=== PATIENT | female | born 1940 | race Caucasian/White ===

== ENCOUNTER → 2020-09-01 13:11 | Outpatient (CLI) | payer MEDICARE, SELFPAY ==
--- NOTE | 2020-09-01 13:24 | CT_ITS ---
PROCEDURE: CT ANGIO CHEST CLINCIAL INDICATION: to rule out PE Cp Dizziness Edema A-fib Abn EKG No prior COMPARISON: No exams were available for comparison TECHNIQUE: IV Contrast: 70ML Isovue 370 Axial images obtained with sagittal and coronal reformats. All CT scans at the facility use one or more dose reduction, viz: automated exposure control, ma/kV adjustment per patient size (including targeted exams where dose is matched to indication, i.e. head), or iterative reconstruction technique. FINDINGS: HEART AND MEDIASTINAL STRUCTURES: No evidence of aortic aneurysm or dissection. No evidence of central pulmonary embolus. The peripheral pulmonary arteries are not well opacified. Coronary artery calcifications are present. LUNGS AND PLEURAL SPACES: Unremarkable. BONY STRUCTURES: No acute bony abnormalities apparent. UPPER ABDOMEN: Unremarkable. ADDITIONAL FINDINGS: No other significant abnormalities. IMPRESSION: Dictated by: Brian Mistry MD 09/03/2020 14:27 Brian Mistry MD in [place] 09/03/2020 14:27
[2020-09-01 13:40] LABS: Basophils % 0.6 % (0.1-2.0); Eosinophils # 0.2 K/mm3 (0.0-0.4); Eosinophils % 2.9 % (0.1-12.0); Hematocrit 44.8 % (37.0-47.0); Hemoglobin 14.8 g/dL (12.2-16.2); Lymphocytes # 2.6 K/mm3 (0.7-4.5); Lymphocytes % 34.7 % (10-50); Mean Corpuscular Hemoglobin 32.2 pg (27.0-31.2); Mean Corpuscular Volume 97.4 fl (81-99); Mean Platelet Volume 9.7 fl (7.4-10.4); Monocytes # 0.5 K/mm3 (0.1-1.0); Monocytes % 7.2 % (1.7-9.3); Neutrophils # 4.1 K/mm3 (1.8-7.8); Neutrophils % 54.7 % (37.0-80.0); Platelet Count 223 K/mm3 (142-424); Red Blood Count 4.59 M/mm3 (4.20-5.40); Red Cell Distribution Width 13.4 % (11.5-17.5); White Blood Count 7.5 K/mm3 (4.8-10.8)
[2020-09-01 14:17] LABS: Alanine Aminotransferase 21 U/L (12-78); Albumin Level 4.4 g/dl (3.5-5.0); Alkaline Phosphatase 94 U/L (38-126); Anion Gap 11.4 mEq/L (5-15); Aspartate Amino Transferase 34 U/L (14-36); Bilirubin,Indirect 0.6 mg/dL (0.0-0.9); Bilirubin,Total 0.6 mg/dl (0.2-1.3); Bilirubin,Unconjugated 0.7 mg/dL (0.0-1.1); Blood Urea Nitrogen 14 mg/dl (7-17); Calcium 9.2 mg/dl (8.4-10.2); Carbon Dioxide 28 mmol/L (22.0-30.0); Chloride 105 mmol/L (98-107); Estimated Glomerular Filt Rate 53 ml/min (>60); GFR (African American) 65 ML/MIN (>60); Glucose 109 mg/dl (74-100); Potassium 4.4 mmoL/L (3.5-5.1); Sodium 140 mmol/L (136-145); Total Protein,Serum 7.2 g/dl (6.3-8.2)
[2020-09-01 14:18] LABS: Erythrocyte Sedimentation Rate 17 mm/hr (0-30)
[2020-09-01 14:23] LABS: C-Reactive Protein 2.8 mg/L (0-4)
[2020-09-01 14:35] LABS: Free T4 (Free Thyroxine) 1.35 ng/dl (0.78-2.19)
[2020-09-01 14:50] LABS: Thyroid Stimulating Hormone 7.79 uIU/mL (0.465-4.68)
== END ==
PROVIDERS: Visit Provider Internal Medicine
DX: E11.9 Type 2 diabetes mellitus without complications (principal); I25.118 Atherosclerotic heart disease of native coronary artery with other forms of angina pectoris; I48.91 Unspecified atrial fibrillation; R07.89 Other chest pain; R42 Dizziness and giddiness; R60.9 Edema, unspecified; R94.31 Abnormal electrocardiogram [ECG] [EKG]
CPT/HCPCS: 36415; 71275; 80048; 80076; 84439; 84443; 85025; 85651; 86140; Q9967

== ENCOUNTER 2020-10-12 08:28 | Day surgery (SDC) | payer MEDICARE, SELFPAY ==
[2020-10-12] VITALS (7 sets, daily range): BP systolic 148–166; BP diastolic 74–84; PULSE 58–72; RESP 16–18; TEMP 36.5–36.7; O2SAT 97–99
--- NOTE | 2020-10-12 10:43 | HMH.PROC ---
[facility] Procedure Note Procedure Note:: Upper Endoscopy Procedure Report: Esophagogastroduodenoscopy with cold biopsies and TTS balloon dilation Endoscopost: Kike Keys II, MD Referring Physician: Andrew Stout MD/Frankie Bell MD ([facility]). Date of Procedure: October 12, 2020 Equipment: Olympus GIF 190 standard upper endoscope Sedation: MAC sedation Indications: Mrs. Moffett is an 80-year-old female with atrial fibrillation and cardiomyopathy. Patient also has had atypical chest pain and presumptive esophageal chest pain. She still has a cardiac stress test pending by cardiology according to the patient. She was hospitalized in April 2020. The patient does report belching and retrosternal chest pressure. She does get some choking on her pills. She reports noise in the retrosternal region like gas. She takes PPI therapy when necessary. She reports no heartburn or reflux. She has no globus sensation or dysphagia. She does report some nausea and early satiety. She has moderate bloating. She reports chronic constipation for which she takes prune juice. Her last colonoscopy was 14 years ago. The patient is on blood thinners (Eliquis). Procedure: Prior to the procedure, a history and physical exam was performed, and patient's medications and allergies were reviewed. The risks, benefits and alternatives of the sedation and procedure were discussed with the patient. All questions were answered and informed consent was obtained. The patient was brought to the procedure room. Patient identification and proposed procedure were verified by the physician and the nurse. The patient was placed in a left lateral decubitus position and the scope was passed under direct vision. Throughout the procedure, the patient's blood pressure, pulse, and oxygen saturations were monitored continuously. The upper GI endoscopy was accomplished without difficulty. The patient tolerated the procedure well. Findings: The scope was passed directly into the upper esophagus and advanced to the third portion of the duodenum. The post bulbar duodenum and duodenal bulb were normal with normal mucosa and conniventes. The scope was withdrawn through a normal duodenal bulb and pylorus into the stomach. There was evidence of mild linear reactive gastropathy of the antrum. The remainder of the body and fundus of the stomach were grossly normal. Upon retroflexion there was 2 to 3 cm hiatal hernia. 2 biopsies were taken in the antrum and along the lesser curvature for histology to rule out gastritis and/or H pylori. The scope was then withdrawn into the esophagus. There was a serrated Z-line and biopsies were taken at the GE junction. There was no evidence of reflux esophagitis, Anderson's or Schatzki's ring. There were tertiary contractions and evidence of moderate esophageal dysmotility. The entire esophagus was dilated to 60 Citizen Of [place]/20 mm with a TTS hydrostatic balloon. There was some resistance at the cricopharyngeus. The remainder of the esophageal mucosa was normal. Impression: 1. Cricopharyngeal spasm status post dilation to 20 mm 2. Nonerosive GERD with moderate esophageal dysmotility and small to medium sized hiatal hernia (2 to 3 cm) 3. Mild linear reactive gastropathy Plan: I do feel that the patient has functional GERD with esophageal dyskinesia/esophageal spasm. This is likely causing some of her belching and esophageal chest pain. I will follow-up the biopsies. We will discuss treatment options that should include dietary measures, fiber bowel regimen and possibly promotility therapy. I would recommend a Cologuard test because of her age, bowel issues and fact that she has had no screening in many years.
--- NOTE | 2020-10-12 15:31 | P.PN_ITS ---
[facility] Anesthesia Checklist - Patient Identification Patient Identification: Arm Band - Structural Data Admitted From: Home Planned Operative Procedure/s: EGD Consent for Planned Operative Procedure(s) Verified: Yes Verified Documents: Surgical Consent, History and Physical - NPO Status Verified Time NPO: 00:00 - Airway Assessment C-Spine Mobility Assessed: Yes TMJ Mobility Assessed: Yes Dentition: Good Dentition - Neurological Assessment Level of Consciousness: Awake, Alert - Anesthesia Plan Anesthesia Risk discussed: Yes Anesthesia Plan: Verified ASA Class: III Anesthesia Type: MAC [facility] History Medical History: Reports:: Atrial Fibrillation, Hypertension, Transient Ischemic Attacks (TIA) Denies:: Cancer, Diabetes Mellitus Type 1, Diabetes Mellitus Type 2, Internal Pacemaker, MRSA, Seizures *Have you ever received a pneumonia vaccine?: Yes *Have you received a flu vaccine this season?: Yes Anesthesia experience/problems:: None Laterality Cases: Bilateral: Carpal Tunnel Release, Cataract Other Surgeries: Yes: No Previous Surgery. No: Pacemaker Amputation: No Fractures: Yes (ankle) - *Social History Smoking Status: Never smoker Alcohol Intake: never Substance Use Type: denies use *Occupational Status:: retired Housing: house Household Members: spouse *Travel in the last 8 weeks: None Family Hx:: Coronary Artery Disease, Tuberculosis
== END 2020-10-12 11:57 | disposition home or self-care (01) ==
LOC: OUTP 08:35
PROVIDERS: PCP Family Medicine; Visit Provider Internal Medicine Gastroenterology
PROC: 0DJ08ZZ Inspection of Upper Intestinal Tract, Via Natural or Artificial Opening Endoscopic (ICD-10-PCS; CPT 43235; principal; 2020-10-12 10:00)
DX: J39.2 Other diseases of pharynx (principal); K21.9 Gastro-esophageal reflux disease without esophagitis; K22.4 Dyskinesia of esophagus; K44.9 Diaphragmatic hernia without obstruction or gangrene; K31.9 Disease of stomach and duodenum, unspecified; I48.91 Unspecified atrial fibrillation; I42.9 Cardiomyopathy, unspecified; I10 Essential (primary) hypertension; Z86.73 Personal history of transient ischemic attack (TIA), and cerebral infarction without residual deficits; Z82.49 Family history of ischemic heart disease and other diseases of the circulatory system; Z83.6 Family history of other diseases of the respiratory system; Z79.899 Other long term (current) drug therapy
CPT/HCPCS: 43239; 43249; 88305; 88313; C1726

== ENCOUNTER → 2020-11-11 12:15 | Outpatient (CLI) | payer MEDICARE, SELFPAY ==
--- NOTE | 2020-11-11 12:15 | NM_ITS ---
APPROVED REPORT Exam: Nuclear Stress Test Indication: CAD, HTN, FM HX, SOB, FATIGUE, A-FIB Patient Location: Outpatient Stress Tech: Justine Bhandari [place] Tech:Lucy VilaAKILAH sanabria RT (R)(N)(M) Ht: 5 ft 3 in Wt: 202 lbs Bra Size: 46B HR: 62 bpm BP: 164/74 mmHg BSA: 1.94 m2 BMI: 35.7 History: CAD, HTN, FM HX, SOB, FATIGUE, A-FIB Procedure: Patient received a 0.4 mg of intravenous Lexiscan, resting heart rate 62 bpm, resting blood pressure 164/74 mmHg, with Lexiscan maximum heart rate achived was 87 bpm which is Less than 85 % of the maximum predicted heart rate and blood pressure was 150/68 mmHg. With Lexiscan, patient denied any complaint of chest pain. Electrocardiogram Resting electrocardiogram showed sinus rhythm, with Lexiscan there is less than 1.[address] segment depression noted from the baseline EKG. Cardiac Stress and Resting SPECT Images: Cardiac Stress and Resting SPECT images were obtained using technetium 99m Myoview 30.5 mCi stress and 10.15 mCi at rest. Gated SPECT for analysis of segmental wall motion and calculation of the ejection fraction also done. Prone images were also obtained. Cardiac stress and resting SPECT images show decreased tracer activity in the anteroseptal wall which improves on the resting images, there is transient ischemic dilatation of the left ventricle seen, raising the concerns for multivessel coronary artery disease. Computer derived ejection fraction is 67% with no regional wall motion abnormality, right ventricle is normal size and contractility. Conclusion: 1. The EKG portion of the Lexiscan is nondiagnostic. 2. Scintigraphic evidence of reversible ischemia involving the anteroseptal wall, there is transient ischemic dilatation of the left ventricle seen, raising the concerns for presence of multivessel coronary artery disease. Computer derived ejection fraction 67% with no regional wall motion abnormality, right ventricle is normal size and contractility. 3. Abnormal Lexiscan Myoview study. Electronically signed by : Rolf Valenzuela, 11/12/2020 14:02:18
--- NOTE | 2020-11-11 14:00 | CA_ITS ---
APPROVED REPORT Exam: Pharmacologic Technologist: Justine Bhandari, Stress Nurse: nsr, t wave abns inferiorly and laterally Ht: 5 ft 3 in Wt: 206 lbs BSA: 1.96 m2 HR: 62 bpm BP: 164/74 mmHg Medical History Medical History: HTN Medications: Aspirin,,,,, Apixaban,,,,, SpirOnALACTONE,,,,, Furosemide,,,,, Cardiac Risk Factors: HTN, FHX of CAD Stress Test Details Test: LEXISCAN HR Resting HR: 67 bpm Max Heart Rate (APMHR): 139.124059 bpm Max HR Achieved: 87 bpm Target HR (85% APMHR): 118.627958 bpm % of APMHR: 62.59 Recovery HR: 78 bpm BP Resting BP: 164/74 mmHg Max BP: 164/74 mmHg Recovery BP: 144.0/74.0 mmHg ECG Resting ECG: NSR, T wave abns inferiorly and laterally Clinical Exercise duration: 04:07 min Highest Stage Achieved: Stress ECG Conclusion PT BECAME SOA, MALAISE. NO CP. NO ARRHYTHMIAS. MILD EXAGGERATION OF BASELINE ABNS. UNREMARKABLE LEXISCAN STRESS. MYOVIEW IMAGES REPORTED SEPERATELY. Electronically signed by : Rolf Valenzuela, 11/12/2020 13:53:43
== END ==
PROVIDERS: PCP Family Medicine; Visit Provider Nurse Practitioner Family
DX: I25.118 Atherosclerotic heart disease of native coronary artery with other forms of angina pectoris; I48.91 Unspecified atrial fibrillation; R06.00 Dyspnea, unspecified; R94.31 Abnormal electrocardiogram [ECG] [EKG]
CPT/HCPCS: 78452; 93017; A9502; J2785

== ENCOUNTER 2020-12-09 11:07 | Day surgery (SDC) | payer MEDICARE, SELFPAY ==
[2020-12-09] VITALS (11 sets, daily range): BP systolic 126–154; BP diastolic 61–78; PULSE 52–73; RESP 13–18; O2SAT 95–100; BMI 36.5
--- NOTE | 2020-12-09 07:13 | IR_ITS ---
APPROVED REPORT Patient Location: Outpatient PROCEDURES Left heart catheterization Left ventriculogram Selective coronary angiogram INDICATION High risk abnormal Myoview, Atypical angina pectoris, Informed consent was obtained prior to the procedure. COMPLICATIONS NONE Estimated Blood Loss: LESS THAN 10 ML TECHNIQUE One percent lidocaine used to anesthetize the right anterior aspect of the wrist. The right radial artery was accessed via the Seldinger technique. A 6 Slov[place] sheath was placed in the right radial artery. 2.5 mg of verapamil, 800 mcg of nitroglycerin, 1mg Lidocaine and 5000 U Heparin were given through the arterial sheath. The trap catheter was also used to perform left heart catheterization, left ventriculogram and selective coronary angiogram. At the end of the procedure the sheath was removed good hemostasis was achieved using Traclet band, patient was transferred to the postop holding area in stable condition. ANGIOGRAPHIC RESULTS The left main artery Normal The left anterior descending artery Has a long proximal 40 to 50% calcified stenosis which is smooth and extends into the mid segment with remaining vessel widely patent The circumflex artery Is a nondominant vessel and has a proximal calcified 50 to 60% stenosis supplying a moderate sized bifurcating first obtuse marginal artery The right coronary artery Is a dominant vessel with a proximal 60 to 70% calcified stenosis with mild 10% luminal irregularities throughout The ANGELES ventriculogram reveals Hyperdynamic at 75 to 80% The left ventricular end-diastolic pressure Severely elevated at 30 to 35 mmHg IMPRESSION Calcified three-vessel coronary disease as described above Hyperdynamic ventricle Severely elevated LVEDP PLAN 1. None of these lesions meet angiographic criteria for stenting. Given the severely elevated LVEDP FFR which is not indicated or would be appropriately diagnostic at this time. Regardless, I believe all these lesions can be managed medically and percutaneous revascularization will not improve patient's symptoms which are almost certainly coming from the hyperdynamic ventricle and severely elevated LVEDP/diastolic dysfunction 2. Appropriately treated diastolic dysfunction hyperdynamic ventricle 3. The patient continues to experience angina after she has been optimally medically managed and LVEDP has been decreased, we can then reconsider bringing her back and consider FFR to determine if any of these lesions are ischemic 4. Continue risk factor modification Electronically signed by : Andrew Stout, 12/09/2020 13:39:15
[2020-12-09 12:53] LABS: Basophils # 0.1 K/mm3 (0-0.2); Basophils % 0.9 % (0.1-2.0); Eosinophils # 0.3 K/mm3 (0.0-0.4); Eosinophils % 3.8 % (0.1-12.0); Hematocrit 42.4 % (37.0-47.0); Hemoglobin 14.3 g/dL (12.2-16.2); Lymphocytes # 2.8 K/mm3 (0.7-4.5); Lymphocytes % 40.5 % (10-50); Mean Corpuscular HGB Conc 33.7 g/dL (31.8-35.4); Mean Corpuscular Volume 95.1 fl (81-99); Monocytes # 0.6 K/mm3 (0.1-1.0); Monocytes % 8.1 % (1.7-9.3); Neutrophils # 3.2 K/mm3 (1.8-7.8); Neutrophils % 46.7 % (37.0-80.0); Platelet Count 198 K/mm3 (142-424); Red Blood Count 4.46 M/mm3 (4.20-5.40); Red Cell Distribution Width 13.2 % (11.5-17.5); White Blood Count 6.8 K/mm3 (4.8-10.8)
[2020-12-09 12:56] LABS: Chloride 106 mmol/L (98-107); Potassium 4.3 mmoL/L (3.5-5.1); Sodium 141 mmol/L (136-145)
[2020-12-09 12:59] LABS: Anion Gap 12.3 mEq/L (5-15); Blood Urea Nitrogen 18 mg/dl (7-17); Calcium 9.1 mg/dl (8.4-10.2); Carbon Dioxide 27 mmol/L (22.0-30.0); Creatinine Clearance Estimated 65 mL/min (50-200); Estimated Glomerular Filt Rate 53 ml/min (>60); GFR (African American) 64 ML/MIN (>60); Glucose 114 mg/dl (74-100)
== END 2020-12-09 15:34 | disposition home or self-care (01) ==
LOC: CATHLAB 11:09
PROVIDERS: PCP Family Medicine; Visit Provider Internal Medicine
DX: I25.118 Atherosclerotic heart disease of native coronary artery with other forms of angina pectoris (principal); I48.0 Paroxysmal atrial fibrillation; R06.00 Dyspnea, unspecified; R94.31 Abnormal electrocardiogram [ECG] [EKG]; Z79.01 Long term (current) use of anticoagulants; Z79.899 Other long term (current) drug therapy
CPT/HCPCS: 80048; 85025; 93458; 99152; 99153; C1725; C1769; J1644; Q9967